=== PATIENT | female | born 1990 | race Caucasian/White ===

== ENCOUNTER 2017-03-08 17:13 | Inpatient (IN) | payer MEDICAID ==
[~2017-03-08] VITALS: Ht 162.6 cm; Wt 58.2 kg
[2017-03-08 17:29] VITALS: BP 131/78
[2017-03-08] MEDS ORDERED: D5%-LACTATED RINGERS 1,000 ML IV SCH (17:58)
[2017-03-08] MEDS ORDERED: OXYTOCIN 30U/ 0.9% NaCL 500ML 500 ML IV ONE (17:58)
[2017-03-08] MEDS ORDERED: PREN1TAB60 PO (17:58)
[2017-03-08] MEDS ORDERED: METOCLOPRAMIDE 5 MG/ML, 2ML IVPush PRN (18:00)
[2017-03-08] MEDS ORDERED: ONDANSETRON 2MG/ML, 2ML IVPush PRN (18:00)
[2017-03-08] MEDS ORDERED: FENTANYL PF 100 MCG/2ML IV PRN (18:00)
[2017-03-08] MEDS ORDERED: FENTANYL PF 100 MCG/2ML IVPush PRN (18:00)
[2017-03-08] MEDS: LACTATED RINGERS 1,000 ML IV SCH ×2 (18:10→21:31)
[2017-03-08] MEDS ORDERED: FENTANYL PF 100 MCG/2ML ONE (18:19)
[2017-03-08] MEDS ORDERED: NEWBORN KIT ONE (18:27)
[2017-03-08] MEDS ORDERED: OXYTOCIN 30U/ 0.9% NaCL 500ML 500 ML ONE ×2 (18:27→22:17)
[2017-03-08 18:38] LABS: HEMATOCRIT 35.8 % (34.6-47.8); HEMOGLOBIN 12.1 g/dL (11.7-16.4); WHITE BLOOD COUNT 21.3 x10^3/uL (3.4-10)
[2017-03-08 19:12] LABS: DIFF TOTAL CELLS COUNTED 100 CELL DIFF
[2017-03-08 19:14] LABS: VERIFY COUNTS? YES
[2017-03-08] MEDS ORDERED: OXYTOCIN 30U/ 0.9% NaCL 500ML 500 ML IV PRN (19:22)
[2017-03-08] MEDS ORDERED: MISOPROSTOL 200 MCG TABLET ONE (20:24)
[2017-03-08] MEDS ORDERED: LIDOCAINE 1%, 20ML ONE (20:24)
[2017-03-08] MEDS ORDERED: IBUPROFEN 600 MG TABLET ONE (20:56)
[2017-03-08] MEDS ORDERED: OXYcodone/APAP 5/325MG TABLET ONE (20:57)
[2017-03-08] MEDS ORDERED: ONDANSETRON 2MG/ML, 2ML IV PRN (21:00)
[2017-03-08] MEDS ORDERED: OXYcodone/APAP 5/325MG TABLET PO PRN ×2 (21:00)
[2017-03-08] MEDS ORDERED: ACETAMINOPHEN 325 MG TABLET PO PRN (21:00)
[2017-03-08] MEDS ORDERED: MISOPROSTOL 200 MCG TABLET PO PRN (21:00)
[2017-03-08] MEDS: IBUPROFEN 600 MG TABLET PO PRN (21:22)
[2017-03-08] MEDS ORDERED: HYDROcodone/APAP 5/325 TABLET ONE (21:24)
[2017-03-08] MEDS: HYDROcodone/APAP 5/325 TABLET PO PRN (21:29)
[2017-03-08] MEDS: OXYTOCIN 30U/ 0.9% NaCL 500ML 500 ML IV SCH (22:20)
[2017-03-08 23:00] VITALS: BP 117/68
[2017-03-09] MEDS: OXYTOCIN 30U/ 0.9% NaCL 500ML 500 ML IV SCH ×2 (06:45→16:45)
[2017-03-09 07:30] VITALS: BP 98/60
[2017-03-09] MEDS: HYDROcodone/APAP 5/325 TABLET PO PRN ×3 (10:26→20:20)
[2017-03-09] MEDS: IBUPROFEN 600 MG TABLET PO PRN ×2 (10:26→16:45)
[2017-03-09] MEDS: DOCUSATE 100 MG CAPSULE PO PRN ×2 (11:14→20:20)
[2017-03-09] MEDS: PRENATAL VIT/IRON/FA 1 EACH TABLET PO SCH (11:14)
[2017-03-09 11:30] VITALS: BP 115/70
[2017-03-09] MEDS ORDERED: DIPH,PERTUSS(ACELL),TET VAC/PF NC IM-VACC ONE (15:00)
[2017-03-09 16:30] VITALS: BP 118/70
[2017-03-09 20:25] VITALS: BP 112/71
[2017-03-10] MEDS: HYDROcodone/APAP 5/325 TABLET PO PRN ×3 (00:23→12:59)
[2017-03-10] MEDS: IBUPROFEN 600 MG TABLET PO PRN ×3 (00:23→12:59)
[2017-03-10] MEDS: OXYTOCIN 30U/ 0.9% NaCL 500ML 500 ML IV SCH (02:45)
[2017-03-10 07:50] VITALS: BP 113/70
[2017-03-10] MEDS: DOCUSATE 100 MG CAPSULE PO PRN (09:23)
[2017-03-10] MEDS: PRENATAL VIT/IRON/FA 1 EACH TABLET PO SCH (09:23)
[2017-03-10] MEDS ORDERED: IBUP-1222 PO (12:54)
[2017-03-10] MEDS ORDERED: OXYC-302 PO (12:55)
== END 2017-03-10 14:38 | disposition home or self-care (01) | DRG 775 ==
LOC: LDOP 17:13 → LDIP 17:58 → 2NW 22:45
PROVIDERS: ADMIT Obstetrics & Gynecology; ATTEND Obstetrics & Gynecology
PROC: 10E0XZZ Delivery of Products of Conception, External Approach (ICD-10-PCS; principal; 2017-03-08)
PROC: 0KQM0ZZ Repair Perineum Muscle, Open Approach (ICD-10-PCS; 2017-03-08)
PROC: 10907ZC Drainage of Amniotic Fluid, Therapeutic from Products of Conception, Via Natural or Artificial Opening (ICD-10-PCS; 2017-03-08)
DX: O70.1 Second degree perineal laceration during delivery (principal); Z37.0 Single live birth; Z23 Encounter for immunization; Z3A.37 37 weeks gestation of pregnancy
CPT/HCPCS: 36415; 85025; 86850; 86900; 90715; J3010; J2590; J7120